=== PATIENT | female | born 1995 | race Hispanic/Latino ===

== ENCOUNTER 2017-05-03 08:33 | Inpatient (IN) | payer OTHER ==
[2017-05-03] VITALS (25 sets, daily range): BP systolic 118–149; BP diastolic 60–92
[~2017-05-03] VITALS: Ht 165.1 cm; Wt 101.2 kg
[~2017-05-03 08:33] MED LIST: LORTAB 5/3255 MG PO; NO MEDS
--- NOTE | 2017-05-03 08:40 | NUR ---
PATIENT TO UNIT FROM HOME VIA ER REGISTRATION ACCOMPANIED BY OB STAFF AND PATIENTS RELATIVE. WEIGHT AND HEIGHT OBTAINED. ESCORTED TO ROOM 253. CLEAN CATCH SPECIMEN OF URINE EXPLAINED AND OBTAINED. EFM COMMENCED. GIVES HISTORY OF CONTRACTIONS SINCE 0800AM AND SROM OF CLEAR FLUIDS SINCE 0820. WILL ASSESS AND NOTIFY . DR MONTANA ON UNIT AWARE OF PATIENT. 899 PATIENT STATES SHE DOES NOT WANT DR MONTANA TO TAKE CARE OF HER. HE IS AWARE OF SAME. WILL NOTIFY DR FONTAINE IN OFFICE. 904 DR FONTAINE IN OFFICE AWARE OF THE ABOVE. WILL ASSUME CARE OF PATIENT.
--- NOTE | 2017-05-03 09:15 | NUR ---
FERN AND ROM PLUS TEST DONE. POOLING OF YELLOW FLUID SEEN IN VAGINA. WILL NOTIFY MD OF RESULTS.
[2017-05-03 09:16] LABS: BARBITURATES NEGATIVE (NEGATIVE); COCAINE NEGATIVE (NEGATIVE); METHADONE NEGATIVE (NEGATIVE); OXCYCODONE NEGATIVE (NEGATIVE); TETRAHYDROCANNABIONOL NEGATIVE (NEGATIVE); TRICYLIC ANTIDEPRESSANTS NEGATIVE (NEGATIVE); URINE BILIRUBIN - DIPSTICK NEGATIVE (NEGATIVE); URINE BLOOD DIPSTICK LARGE (NEGATIVE); URINE CLARITY CLOUDY; URINE COLOR YELLOW; URINE GLUCOSE - DIPSTICK NEGATIVE (NEGATIVE); URINE KETONE NEGATIVE (NEGATIVE); URINE LEUK ESTERASE TRACE (NEGATIVE); URINE NITRITE - DIPSTICK NEGATIVE (Negative); URINE PROTEIN - DIPSTICK TRACE mg/dL (NEG-TRACE); URINE UROBILINOGEN - DIPSTICK 0.2 E.U./dL (0.2)
[2017-05-03 09:25] LABS: URINE AMORPH SEDIMENT MODERATE hpf (NONE-FEW); URINE SQUAMOUS EPITHELIAL CELL MANY EPI/hpf (0-FEW)
--- NOTE | 2017-05-03 09:45 | NUR ---
FERN AND ROM PLUS POSITIVE. SVE DONE. CX 2 CM DILATED, 95% EFFACED, VTX AT STATION 0/-1.. 0955 DR FONTAINE NOTIFIED OF THE ABOVE. NEW ORDERS RECEIVED TO BE COMMENCED.
--- NOTE | 2017-05-03 10:20 | NUR ---
TOCOMETER CHANGED. SAME NOT RESPONDING TO TOUCH. WILL CONTINUE TO MONITOR FOR CONTRACTIONS.
--- NOTE | 2017-05-03 11:08 | NUR ---
1106:PT OOB TO VOID. 1108: PT IS AMBULATING IN THE HALLWAYS WITH FAMILY AT SIDE. PT STOPS AND TAKES DEEP BREATHS DURING CONTRACTIONS.
[2017-05-03 11:14] LABS: HEMATOCRIT 35.5 % (37.0-47.0); IMMATURE GRANULOCYTES 0.6 % (0.0-1.0); MEAN CELL VOLUME 80.1 fL CALC (80.0-100.0); MEAN CORPUSCULAR HGB 27.1 pG CALC (26.0-32.0); MEAN CORPUSCULAR HGB CONC 33.8 g/L CALC (32.0-36.0); NEUT# 11.07 thou/uL (2.00-7.15); RED BLOOD COUNT 4.43 mill/uL (4.20-5.60); RED CELL DISTRI WIDTH 13.2 % (11.5-15.5)
[2017-05-03 11:27] LABS: ALBUMIN 3.4 g/dL (3.2-5.0); ALKALINE PHOSPHATASE 238 u/l (38-126); ANION GAP 16 (6-22 (CALC)); BILIRUBIN, TOTAL 0.4 mg/dL (0.0-1.4); BUN 9 mg/dL (7-17); BUN/CREATININE RATIO 14 (12-20 (CALC)); CALCIUM 9.8 mg/dL (8.4-10.2); CARBON DIOXIDE 19 mmol/l (22-30); CHLORIDE 107 mmol/l (95-108); CREATININE 0.7 mg/dL (0.5-1.0); GFR > 60 ML/MIN (>=60 (CALC)); GFR FOR AFR.AMER. > 60 ML/MIN (>=60 (CALC)); GLUCOSE 87 mg/dL (65-105); POTASSIUM 4.2 mmol/l (3.5-5.1); SGOT/AST 14 u/l (14-36); SGPT/ALT 17 u/l (9-52); SODIUM 137 mmol/l (137-146); TOTAL PROTEIN 6.4 g/dL (6.3-8.2)
--- NOTE | 2017-05-03 11:49 | NUR ---
PT BACK IN FROM AMBULATING AND EFM APPLIED. PT IS SITTING IN THE SIDE OF THE BED AT THIS TIME. FAMILY IN ROOM. PT DENIES ANY NEEDS AT THIS TIME.
--- NOTE | 2017-05-03 11:57 | NUR ---
DR. FONTAINE AT BEDSIDE. SVE DONE BY /. PLAN OF CARE DISCUSSED BY MD. PT VERBALIZED UNDERSTANDING.
--- NOTE | 2017-05-03 12:10 | NUR ---
PALPATED ABDOMEN, CONTRACTIONS ARE MILD AND RETURN TO SOFT. PT IS IN HER LEFT SIDE. PT DENIES ANY NEEDS AT THIS TIME. FAMILY IN ROOM.
--- NOTE | 2017-05-03 12:26 | NUR ---
1224: PT OOB TO VOID. 1226: PT AMBULATING IN THE HALLWAYS WITH FAMILY AT SIDE.
--- NOTE | 2017-05-03 13:21 | NUR ---
1301: PT BACK IN ROOM FROM WALKING. EFM NOT TRACING CONTRACTIONS. BETO APPLIED UNABLE TO GET TRACING. WILL GET ANOTHER NURSE TO HELP. [id number]: EFM APPLIED FHR 150 AND ACCEL PRESENT. PALPATED ABDOMEN AND CONTRACTIONS ARE MILD AND RETURN TO SOFT. 1321: BETO IN PLACED AND WORKING. PT DENIES ANY NEEDS AT THIS TIME. FAMILY IN ROOM. CALL LIGHT IN REACH.
--- NOTE | 2017-05-03 14:10 | NUR ---
PT IS SITTING IN BIRTHING BALL AND S/O AT SIDE FOR SUPPORT. PT TAKES DEEP BREATHS DURING CONTRACTIONS. PT DENIES ANY OTHER NEEDS AT THIS TIME.
--- NOTE | 2017-05-03 15:07 | NUR ---
1455: SVE DONE /-1 AND NORMAL SHOW. 1507: MEDICATED PT FOR PAIN SEE EMAR. PT STATED PAIN IS 7-8 IN LOWER ABDOMEN. FAMILY IN ROOM.
--- NOTE | 2017-05-03 15:43 | NUR ---
PT IS RESTING ON AND OFF. STATED THAT MEDICATION HELPED AND FAMILY IN ROOM. PT DENIES ANY NEEDS AT THIS TIME.
--- NOTE | 2017-05-03 16:21 | NUR ---
PT IS RESTING IN BED. PT STATED THAT HER PAIN IS 6/10. PT DENIES ANY NEEDS AT THIS TIME. S/O IN ROOM.
--- NOTE | 2017-05-03 16:32 | NUR ---
DR. FONTAINE AT BEDSIDE. DISUSSED WITH MD THAT CONTRACTIONS HAVE BEEN IRREGULAR, SINCE PAIN MEDICATION GIVEN. SVE DONE BY . MD DISCUSS PLAN OF CARE WITH PT AND PT VERBALIZED UNDERSTANDING.
--- NOTE | 2017-05-03 17:03 | NUR ---
PITOCIN STARTED AND INFUSION AT 2 MILIUNITS/MIN. PER DR. FONTAINE ORDERS. PT DENIES ANY NEEDS AT THIS TIME. FAMILY IN ROOM.
--- NOTE | 2017-05-03 17:47 | NUR ---
PT ON RIGHT SIDE. ICE CHIPS GIVEN. PT STATED THAT PAIN IS 6/10. PT TAKES DEEP BREATHS WHEN SHE HAS A CONTRACTION. PT DENIES ANY OTHER NEEDS AT THIS TIME. S/O AT SIDE. REPORT READY FOR ONCOMING SHIFT.
--- NOTE | 2017-05-03 18:10 | NUR ---
PT REQUESTED PAIN MEDICATION, BUT THEN FAMILY MEMBER ENCOURAGE PT TO CHANGE HER MIND. PT STATED THAT SHE DID NOT WANT THE PAIN MEDICATION ANY MORE. PT TAKES DEEP BREATHS DURING CONTRACTIONS. PT DENIES ANY OTHER NEEDS AT THIS TIME. FAMILY IN ROOM.
--- NOTE | 2017-05-03 18:55 | NUR ---
Call from Dr. Holland re: pt progress. RN relayed tommy q 2-3 min, presently standing at bedside moving with contractions, females in room have decided pt should not have pain medication r/t "it slowed down contractions earlier", presently on pitocin 6mu. stated he would come in and check her later, RN relayed same to patient and group in room.
--- NOTE | 2017-05-03 18:55 | NUR ---
Bedside report received from Hari Phillips RN. Pt up to bathroom, unable to void. Pt breathing through contractions, RN asked if she would like pain medicine, S.O's mother said "absolutely not!, it slowed her down last time". RN reviewed that she was not on pitocin with last dose of medication, pt now standing at bedside moving hips during contractions.
--- NOTE | 2017-05-03 21:45 | NUR ---
Pt received 400ml bolus LR with pitocin 10u from induction pitocin bag already hanging, then 150ml/hr.
--- NOTE | 2017-05-03 23:06 | NUR ---
1923 Pt desires pain medication. 1928 RN in room to administer pain medication, Dr. Holland in for vaginal exam, states /+1. 1937 pt moved to Room 1 via bed by Hari Pena RNC and Harman Mojica RN. 1954 - Pt complete and pushing with contractions assisted by Hari Pena RNC 2104 DrTalib on the unit, summoned and present in room, pushing with patient. 2112 O2 at 10L via tight partial non-rebreather, breathing in between contractions. 2121 pt getting exhausted, applied Kiwi, pulling with pt pushing during a contraction. Pt in Gaby, KENDAL utilizing suprapubic pressure for 2 minute shoulder dystocia. Assisted vaginal delivery at 2129, viable female with cord around neck x 2 and terminal meconium, cord clamped immediately and baby taken to radiant warmer for resucitation. Perineum intact, placenta delivered intact by at 2144.
--- NOTE | 2017-05-03 23:31 | NUR ---
pt up to bathroom with steady gait. unable to void. RN taught cami care, return demo by pt. tucks and dermoplast applied by patient. pt ambulated with steady gait to room 207
[2017-05-04] VITALS: BP 123/62
--- NOTE | 2017-05-04 00:11 | NUR ---
Vital signs stable, pt eating regular diet food brought in by family, no nausea/vomiting.
--- NOTE | 2017-05-04 02:45 | NUR ---
Pt up to bathroom, able to void, doing own cami care
--- NOTE | 2017-05-04 05:30 | NUR ---
RN in room to draw AM lab and medicate with Motrin. Pt c/o feeling pressure in her bladder. RN stated "you said you went pee before" pt states "I did, but it was just a dribble". RN explained straight cath procedure, gathered supplies, then pt stated she thinks she could use the bathroom. Pt up to bathroom, voided large amount and then took a shower.
[2017-05-04 05:45] LABS: HEMATOCRIT 32.7 % (37.0-47.0); IMMATURE GRANULOCYTES 0.6 % (0.0-1.0); MEAN CELL VOLUME 80.7 fL CALC (80.0-100.0); MEAN CORPUSCULAR HGB 27.2 pG CALC (26.0-32.0); MEAN CORPUSCULAR HGB CONC 33.6 g/L CALC (32.0-36.0); NEUT# 18.9 thou/uL (2.00-7.15); RED BLOOD COUNT 4.05 mill/uL (4.20-5.60); RED CELL DISTRI WIDTH 13.1 % (11.5-15.5)
--- NOTE | 2017-05-04 06:50 | NUR ---
REPORT RECEIVED FROM CLOTH DESIGNER. INFANT IN NURSERY UNDER WARMER.
--- NOTE | 2017-05-04 07:00 | NUR ---
ASSESSMENT AND VS CHARTED.
--- NOTE | 2017-05-04 07:00 | NUR ---
SHIFT REPORT RECEIVED. PT AWAKE SITTING IN BED. DENIES NEEDS OR QUESTIONS AT THIS TIME.
--- NOTE | 2017-05-04 07:15 | NUR ---
INFANT BATH GIVEN KEEPING L SHOULDER STABLE.
--- NOTE | 2017-05-04 07:50 | NUR ---
ASSESSMENT AND VS DONE. PT TEACHING DONE. DENIES QUESTIONS OR NEEDS AT THIS TIME. BED IN LOW POSITION, CALL LIGHT IN REACH. S/O AT BEDSIDE.
[2017-05-04 19:20] VITALS: BP 120/60
--- NOTE | 2017-05-04 20:16 | NUR ---
Hari Pena RNC in to talk to parents about call to Dr. Munguia and baby not eating well. RN relayed has ordered and IV, in addition to labs in the morning. parents voice understanding.
--- NOTE | 2017-05-05 01:35 | NUR ---
Patient, her and baby all asleep in room without distress
--- NOTE | 2017-05-05 06:50 | NUR ---
PT RESTING IN BED, DENIES ANY PAIN OR NEEDS AT THIS TIME.
[2017-05-05 07:20] VITALS: BP 103/52
--- NOTE | 2017-05-05 07:20 | NUR ---
VS AND ASSESSMENT DONE, STABLE, DENIES ANY PAIN. DISCUSSED PLAN OF CARE WITH PT, PT VERBALIZED UNDERSTANDING.
--- NOTE | 2017-05-05 07:45 | NUR ---
DR. FONTAINE AT BEDSIDE AT THIS TIME.
--- NOTE | 2017-05-05 14:00 | NUR ---
PT HOLDING INFANT AT THIS TIME, POSITIVE BONDING. VISITING WITH FAMILY. DENIES ANY NEEDS.
--- NOTE | 2017-05-05 17:12 | NUR ---
PT CARING FOR INFANT, VISITING WITH FRIENDS AND FAMILY. DENIES ANY NEEDS.
--- NOTE | 2017-05-05 18:13 | NUR ---
PT MEDICATED WITH MOTRIN FOR BACK PAIN. HEAT PACK PROVIDED WELL. DENIES ANY OTHER NEEDS.
--- NOTE | 2017-05-05 18:50 | NUR ---
BEDSIDE REPORT RECEIVED FROM WON JACK RN ON PT STATUS. PT DENIES PAIN OR DISCOMFORT. STATES IBUPROFEN REALLY HELPED. NO OTHER CONCERNS. BED IN LOW POSITION AND CALL LIGHT WITHIN REACH. SIGNIFICANT OTHER AT BEDSIDE.
--- NOTE | 2017-05-05 19:45 | NUR ---
PT TAKES SHOWER. DENIES DIZZINESS OR FATIGUE. LINENS CHANGED. NO COMPLAINTS. SIGNIFICANT OTHER HOLDING INFANT.
--- NOTE | 2017-05-05 21:20 | NUR ---
HOLDING . NO SIGNS OF DISTRESS FROM PT. HAS NO CONCERNS. DENIES PAIN OR SNACK. EATING DONUTS A COUSIN BROUGHT HER.
[2017-05-05 23:40] VITALS: BP 122/69
--- NOTE | 2017-05-05 23:40 | NUR ---
HEAD TO TOE PHYSICAL ASSESSMENT COMPLETED. DISCHARGE TEACHING DONE. PT KNOWLEDGEABLE ON NUMEROUS POST TEACHING TOPICS. STATES SHE HAS TAKEN CARE OF LOTS OF BABIES IN HER FAMILY. HAS NO QUESTIONS OR CONCERNS. READY TO SLEEP. ALREADY IN NURSERY.
--- NOTE | 2017-05-06 03:44 | NUR ---
PT SLEEPING. DOES NOT AWAKEN WHEN NURSE ENTERS ROOM. NO SIGNS OF DISTRESS. BED IN LOW POSITION.
--- NOTE | 2017-05-06 05:03 | NUR ---
0455: PT AWAKE AND REQUESTS PAIN MEDICATION. 0503: MEDICATED WITH MOTRIN PRESCRIBED. SEE E-MAR FOR DETAILS.
--- NOTE | 2017-05-06 06:53 | NUR ---
REPORT GIVEN TO STEVENSON LAROSE RN ON PT STATUS.
--- NOTE | 2017-05-06 06:55 | NUR ---
REPORT RECEIVED BY KENDAL RHODES. PT IS RESTING IN BED. HOLDING IN ARMS. PT DENIES ANY NEEDS AT THIS TIME.
[2017-05-06 07:50] VITALS: BP 126/55
--- NOTE | 2017-05-06 07:50 | NUR ---
ASSESSMENT DONE AND VS CHARTED. PT DENIES PAIN AT THIS TIME. PT STATED THAT SHE WILL BE EATING HER BREAKFAST SOON. PT DENIES ANY NEEDS AT THIS TIME. CALL LIGHT IN REACH.
--- NOTE | 2017-05-06 09:33 | NUR ---
DISCHARGE TEACHING DISCUSSED WITH PT AND PT VERBALIZED UNDERSTANDING. PT DENIES QUESTIONS. PT DENIES ANY NEEDS AT THIS TIME. S/O IN ROOM.
--- NOTE | 2017-05-06 12:18 | NUR ---
VERBAL ORDERS RECEIVED BY DR. FONTAINE FOR PT TO BE DISCHARGE TO HOME.
--- NOTE | 2017-05-06 12:48 | NUR ---
DISCHARGE COPIES GIVEN AND PT DENIES ANY NEEDS. PT STATED THAT SHE ALREADY MADE AN APPOINTMENT FOR FOLLOW-UP.
--- NOTE | 2017-05-06 13:20 | NUR ---
PT WENT VIA WHEELCHAIR TO CAR TO GO HOME. IN STABLE CONDITION. S/O AT SIDE.
== END 2017-05-06 13:20 | disposition home or self-care (01) | DRG 775 ==
LOC: OBOP 08:33 → EDSTATUS 08:34 → OB 08:45 → OBOP 08:45 → OB 08:45 → OBOP 09:54 → OB 09:55
PROVIDERS: ADMIT Obstetrics & Gynecology; ATTEND Obstetrics & Gynecology
PROC: 10D07Z6 Extraction of Products of Conception, Vacuum, Via Natural or Artificial Opening (ICD-10-PCS; principal; 2017-05-03)
DX: O99.334 Smoking (tobacco) complicating childbirth (principal); F17.210 Nicotine dependence, cigarettes, uncomplicated; O66.0 Obstructed labor due to shoulder dystocia; O69.81X0 Labor and delivery complicated by cord around neck, without compression, not applicable or unspecified; O70.0 First degree perineal laceration during delivery; O77.0 Labor and delivery complicated by meconium in amniotic fluid; Z3A.40 40 weeks gestation of pregnancy; Z37.0 Single live birth

== ENCOUNTER 2019-06-06 | Emergency (ER) | payer MEDICAID ==
[2019-06-06 22:45] LABS: URINE BILIRUBIN - DIPSTICK NEGATIVE (NEGATIVE); URINE BLOOD DIPSTICK NEGATIVE (NEGATIVE); URINE COLOR YELLOW; URINE GLUCOSE - DIPSTICK NEGATIVE (NEGATIVE); URINE KETONE NEGATIVE (NEGATIVE); URINE LEUK ESTERASE NEGATIVE (NEGATIVE); URINE NITRITE - DIPSTICK NEGATIVE (Negative); URINE PH 7.5 (4.5-8.0); URINE PROTEIN - DIPSTICK NEGATIVE (NEG-TRACE)
[2019-06-06] MEDS ORDERED: BACTRIM DS1 TAB PO (22:57)
[2019-06-06] MEDS ORDERED: CEPHALEXIN500 M1 PO (22:57)
[2019-06-06] MEDS ORDERED: ULTRAM50 M1 PO (22:57)
== END 2019-06-06 23:19 | disposition home or self-care (01) ==
PROVIDERS: Emergency Medicine
DX: L02.412 Cutaneous abscess of left axilla (principal); F17.210 Nicotine dependence, cigarettes, uncomplicated